=== PATIENT | male | born 1995 | race Caucasian/White ===

== ENCOUNTER 2018-01-31 06:18 | Emergency (ER) | payer OTHER ==
[~2018-01-31] VITALS: Ht 165.1 cm; Wt 56.0 kg
[2018-01-31 06:25] VITALS: BP 147/90; PULSE 76; RESP 16; TEMP 97.8; O2SAT 98
[2018-01-31 07:30] VITALS: BP 130/78; PULSE 80; RESP 15; O2SAT 100
[2018-01-31] MEDS ORDERED: MORPHINE SULFATE 4 MG/ML INJ IV PUSH ONE (07:45)
[2018-01-31] MEDS ORDERED: ONDANSETRON HCL 4 MG/2 ML VIAL IV PUSH ONE (07:45)
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
[2018-01-31] MEDS ORDERED: CYCL10TA PO (09:46)
[2018-01-31] MEDS ORDERED: CLIN300C5 PO (09:46)
[2018-01-31] MEDS ORDERED: TRAM50 PO (09:46)
== END 2018-01-31 10:28 | disposition home or self-care (01) ==
LOC: NEPC 06:18
DX: S00.83XA Contusion of other part of head, initial encounter (principal); S40.012A Contusion of left shoulder, initial encounter; S80.01XA Contusion of right knee, initial encounter; S80.02XA Contusion of left knee, initial encounter; K04.7 Periapical abscess without sinus; V47.5XXA Car driver injured in collision with fixed or stationary object in traffic accident, initial encounter; Y92.411 Interstate highway as the place of occurrence of the external cause
CPT/HCPCS: 70450; 70486; 71045; 72125; 72170; 73000; 73564; 96374; 96375; 99285; J2270; J2405